=== PATIENT | male | born 1935 | race Caucasian/White ===

== ENCOUNTER 2017-08-24 19:48 | Inpatient (IN) | payer MEDICARE, OTHER ==
[2017-08-24] MEDS ORDERED: NS 0.9% 1000 ML*IV.FLUID IV ONE (20:08)
[2017-08-24] MEDS ORDERED: Ketorolac INJ* 30 MG/ML 1 ML VIAL IV ONE (20:08)
[2017-08-24 21:02] LABS: INR 1.45 (0.77-1.02)
[2017-08-24 21:07] LABS: EGFR Non-African American 53.5 (>60)
[2017-08-24] MEDS ORDERED: Piperacillin/Tazobac ADVAN(*) 3.375 GM in NS 0.9% 100 ML* 100 ML IVPB ONE (21:07)
[2017-08-24] MEDS ORDERED: Levofloxacin 750 MG IVPREMIX(* 750 MG/150 ML BAG IVPB ONE (21:07)
--- NOTE | 2017-08-24 21:28 | RAD ---
Indication: Sepsis, shortness of breath. Single frontal view of the chest performed at 2100 hours was reviewed. Comparison is made with previous exam dated September 09, 2014. Cardiomegaly is noted. Pacemaker leads are in place. Patient is status post tracer thoracotomy. Interstitial edema consistent with vascular congestion is noted. IMPRESSION: CARDIOMEGALY WITH INTERSTITIAL EDEMA CONSISTENT WITH VASCULAR CONGESTION.
[2017-08-24 21:50] LABS: ABS Basophils 0 10^3/ul (0-0.2); ABS Eosinophils 0 10^3/ul (0-0.6); ABS Lymphocytes 0.2 10^3/ul (1.0-4.8); ABS Monocytes 0.4 10^3/ul (0-0.8); ABS Neutrophils 4.8 10^3/ul (1.5-7.7); ABS Nucleated RBC 0 10^3/ul; Eosinophil % 0.4 % (0-6); Hematocrit 38 % (42-52); Hemoglobin 13.1 g/dl (14.0-18.0); Lymphocyte % 4.2 % (25-47); Mean Corpuscular HGB Conc 34 g/dl (31-36); Mean Corpuscular Hemoglobin 34 pg (27-31); Mean Corpuscular Volume 100 fL (80-94); Mean Platelet Volume 10 um3 (7.4-10.4); Nucleated Red Blood Cells % 0; Platelet Count 74 10^3/ul (150-450); Red Blood Count 3.84 10^6/ul (4.0-5.4); Red Cell Distribution Width 15 % (10.5-15); White Blood Count 5.5 10^3/ul (3.5-10.8)
[2017-08-24 21:56] LABS: Urine Appearance Clear; Urine Blood Negative (Negative); Urine Color Yellow; Urine Ketones Negative (Negative); Urine Protein Negative (Negative); Urine Specific Gravity 1.013 (1.010-1.030); Urine Urobilinogen Negative (Negative)
[2017-08-24] MEDS ORDERED: Vancomycin(*) 1,000 MG in NS 0.9% 250 ML* 250 ML IVPB ONE (22:00)
[2017-08-24] MEDS ORDERED: Vancomycin(*) 1,000 MG VIAL IVPB SCH (22:00)
[2017-08-24] MEDS ORDERED: Acetaminophen TAB* 325 MG PO PRN (22:23)
[2017-08-24] MEDS ORDERED: Ondansetron INJ* 2 MG/ML VIAL IV PRN (22:23)
[2017-08-24] MEDS ORDERED: Al Hydrox/Mg Hydrox/Simet LIQ* 30 ML UDC PO PRN (22:23)
[2017-08-24] MEDS ORDERED: Docusate CAP* 100 MG PO PRN (22:42)
[2017-08-24] MEDS ORDERED: Senna TAB PO PRN (22:42)
[2017-08-24] MEDS ORDERED: Zosyn per Pharmacy* NOTE FOLLOW UP SCH (23:00)
--- NOTE | 2017-08-25 00:04 | HP ---
CC: Duran Rosenberg MD * HISTORY AND PHYSICAL: DATE OF ADMISSION: 08/24/17 TIME OF EVALUATION: 0 PRIMARY CARE PHYSICIAN: Duran Rosenberg MD CHIEF COMPLAINT: Fever and shortness of breath. HISTORY OF PRESENT ILLNESS: This is an 82-year-old male with a past medical history of congestive heart failure, atrial fibrillation and advanced dementia who presents to the emergency room from [facility] with rigors, fever and inability to ambulate. On my encounter, the patient states he does not like doctors, he does not have the ability to tell me his name, and the history is thus minimal. I did speak with his who states normally he is ambulatory and this evening he had an acute onset of rigors, feeling unwell and unable to ambulate. He also appeared to be short of breath with pursed lip breathing. He was noted to have a 10-pound weight gain from 08/17/17, he was 140 pounds to today he is 150 pounds. When discussed his baseline dementia, she states that he has advanced dementia. She is not sure if he recognizes any family members. He is unable to carry on meaningful conversation. He is still ambulatory at baseline , but he is now on a pureed diet. He has refused all other foods. There has been some concern about his aspiration risk. On my encounter, unable to obtain review of systems due to the patient's advanced dementia. PAST MEDICAL HISTORY: 1. Advanced dementia. 2. History of congestive heart failure, with preserved EF. Echo done back in 2012 shows EF of 65% to 70%. Moderate TR. Mild to moderate pulmonary hypertension. 3. History of tachybrady, status post pacemaker placement. 4. Atrial fibrillation. 5. Hypertension. 6. Hyperlipidemia. MEDICATIONS: 1. Namenda 10 mg p.o. b.i.d. 2. Citrucel 500 mg p.o. daily. 3. B12 of 1000 mcg p.o. daily. 4. Aricept 5 mg p.o. daily. 5. Lisinopril 2.5 mg daily. 6. Digoxin 1.25 mcg daily. 7. Sertraline 25 mg daily. 8. Torsemide 10 mg 3 times per week. 9. Tamiflu 30 mg daily, it is unclear the duration of when this was started. 10. Coumadin 5 mg p.o. daily. 11. Lipitor 10 mg p.o. daily. 12. Amoxicillin 5000 mg 1 hour prior to dental procedure. 13. Tylenol 650 mg every 4 hours as needed. 14. Milk of magnesia as needed. 15. Guaifenesin as needed. ALLERGIES: SEAFOOD. FAMILY HISTORY: Unable to obtain. SOCIAL HISTORY: As mentioned, the patient lives at assisted living. He ambulates with a walker. He has baseline advanced dementia, does not have meaningful interactions. Pureed diet. His , Rosa, is his healthcare proxy, phone number [phone]. Did confirm with her that he remains a DNR/DNI. No changes to his MOLST form. REVIEW OF SYSTEMS: Unable to obtain due to the patient's advanced mental status. PHYSICAL EXAMINATION GENERAL: In no acute distress. Appears restless. VITAL SIGNS: T-Max 102.9, pulse rate 80, respiratory rate 21, oxygen saturation 94% on room air, and blood pressure 130/60. HEENT: Head normocephalic. Pupils opacified. Minimally reactive. Conjunctivae anicteric. Oropharynx: Posterior oropharynx is erythematous. NECK: Supple. No nuchal rigidity. RESPIRATORY: Coarse rhonchorous breath sounds bilaterally. CARDIAC: Harsh systolic murmur most prominent at the right sternal base. Irregularly irregular rate and rhythm. ABDOMEN: Soft, nontender, and nondistended. EXTREMITIES: No clubbing, cyanosis, or edema. +1 DPs. NEUROLOGIC: The patient is alert and oriented x0. He is spontaneously moving all extremities. Unable to follow any commands. LABORATORY DATA: White count 5.5, hemoglobin 13.1, hematocrit 38, platelets 74 ,000. INR is 1.45. Sodium 132, potassium 4.8, chloride 99, bicarb 23, BUN 29, creatinine 1.28. Troponin 0.04. BNP is 750. Urinalysis unremarkable. Flu is negative. RADIOGRAPHIC DATA: Chest x-ray shows cardiomegaly with interstitial edema consistent with vascular congestion. EKG is paced with atrial fibrillation. ASSESSMENT/PLAN: This is an 82-year-old male with a past medical history of advanced dementia who presents from Assisted Living at [facility] with fever and rigors. 1. Fever. Assessment: The patient with systemic inflammatory response syndrome criteria. It appears most likely related to a viral illness or aspiration pneumonitis. His chest x-ray is abnormal, but there is concern for a volume overload as well. Due to the acute onset and nature of his illness, I would be more concerned with aspiration pneumonitis. In the emergency room, he received 2 L of fluid, Zosyn, Levaquin, and vancomycin. We will continue him on Zosyn for now. We will follow up on his blood cultures, repeat his labs. Obtain swallow study. Continue his pureed diet for now. 2. Acute decompensated heart failure. Assessment: The patient with a history of aortic valve replacement and heart failure and with a significant amount of weight gain recently. He did receive 2 L in the emergency room. P shola: We will increase his torsemide to 20 mg p.o. daily and monitor for signs of worsening fluid overload. We will get an echocardiogram and check I's and O' s and daily weights here. We will check a dig level and determine if appropriate to resume. 3. Renal insufficiency. He had a bump in his creatinine back in early August as well. Plan: We will repeat his labs in the morning, could be from his acute decompensated heart failure. We will hold his lisinopril for now. 4. Atrial fibrillation, on anticoagulation. The patient is subtherapeutic on Coumadin. We will continue his Coumadin at 5; however, with somebody with advanced dementia who is still ambulating, he is a high fall risk and I would discuss with his life tester outboard motors the risks versus benefits of being on anticoagulation with his other comorbidities. 5. Dementia. We will resume his Namenda and Aricept. 6. Hyperlipidemia. We will resume his Lipitor. 7. FEN as mentioned pureed diet, swallow eval to rule out any aspiration. 8. DVT prophylaxis. The patient scores moderate risk. He is on Coumadin. 9. Code status. The patient is a DNR/DNI, confirmed by his . TIME SPENT: Greater than 60 minutes spent doing the history and physical, more than half the time spent in direct patient contact. [id number]/[facility] #: [id number] BIBIANA
[2017-08-25] MEDS ORDERED: Piperacillin/Tazobactam 13.5 GM IV 24 hour continuous infusion IVPB SCH ×2 (01:00)
--- NOTE | 2017-08-25 05:31 | ED ---
Keo Wetzel Julia, scribed for Edi Higuera MD on 08/24/17 at 2009 . HPI Febrile Illness - HPI Summary HPI Summary: This patient is a 82 year old M BIBA to [facility] from assisted living facility accompanied by his with a chief complaint of fever, weakness, and confusion. Patient is coughing and hiccupping. EMS reports fever of 102.9 upon arrival. states he was given Tamiful ten days ago. Pt has history of CHF, pacemaker, and valve replacement. Patient has dementia. - History of Current Complaint Chief Complaint: EDFever Time Seen by Provider: 08/24/17 19:57 Hx Obtained From: Family/Fur Blower, EMS Hx From Patient Unobtainable Due To: Dementia Timing: Constant Temperature: 39.4 C Pain Intensity: 0 Aggravating Factors: Unknown Associated Signs and Symptoms: Other: - weakness confusion coughing and hiccupping - Allergy/Home Medications Allergies/Adverse Reactions: Allergies Allergy/AdvReac Type Severity Reaction Status Date / Time scallops Allergy Mild Vomiting Uncoded 07/08/16 10:42 seafood Allergy Unknown Unknown Uncoded 07/08/16 10:42 Reaction Details PMH/Surg Hx/FS Hx/Imm Hx Cardiovascular History: Reports: Hx Congestive Heart Failure, Hx Hypercholesterolemia, Hx Hypertension, Hx Pacemaker/ICD, Hx Valvular Heart Disease, Other Cardiovascular Problems/Disorders - pacer Musculoskeletal History: Reports: Other Musculoskeletal History - fx L 7th rib Sensory History: Reports: Hx Contacts or Glasses Opthamlomology History: Reports: Hx Contacts or Glasses Neurological History: Reports: Hx Dementia, Other Neuro Impairments/Disorders - mild cognitive impairment 09/14 - Surgical History Surgery Procedure, Year, and Place: OPEN HEARTPACE MAKERPROSTHETIC VALVE Infectious Disease History: No Infectious Disease History: Denies: Traveled Outside the [place] in Last 30 Days - Family History Known Family History: Positive: Unknown - Patient is unable to report due to dementia - Social History Lives: Assisted Living Alcohol Use: Occasionally Substance Use Type: Reports: None Smoking Status (MU): Never Smoked Tobacco Have You Smoked in the Last Year: No Review of Systems Positive: Fever, Other - hiccups Positive: Cough Positive: Weakness All Other Systems Reviewed And Are Negative: Yes - Comments Additional Review of Systems Comments: ROS is limited as Pt is unable to report symptoms secondary to dementia Physical Exam - Summary Physical Exam Summary: Appearance: mild to moderate distress Skin: warm, dry, flushed Head/face: normal Eyes: EOMI, JACKIE ENT: dry mucous membranes, dry cracked lips Neck: supple, non-tender Respiratory: CTA, breath sounds present, has tachypnea Cardiovascular: RRR, pulses symmetrical, pacemaker present at L chest, sternotomy scar, sof systolic murmur Abdomen: non-tender, soft Bowel: present Musculoskeletal: normal, strength/ROM intact, 2+ pitting Edema Neuro: normal, sensory motor intact, A&Ox3 Genitalia: catheter not present Triage Information Reviewed: Yes Vital Signs On Initial Exam: Initial Vitals Temp Pulse Resp BP Pulse Ox 102.9 F 83 20 128/44 94 08/24/17 19:52 08/24/17 19:52 08/24/17 19:52 08/24/17 19:52 08/24/17 19:52 Vital Signs Reviewed: Yes Diagnostics - Vital Signs Vital Signs Temp Pulse Resp BP Pulse Ox 08/24/17 19:52 102.9 F 83 20 128/44 94 - Laboratory Lab Results: Lab Results 08/24/17 08/24/17 08/24/17 Range/Units 20:22 20:25 20:25 WBC (3.5-10.8) 10^3/ul RBC (4.0-5.4) 10^6/ul Hgb (14.0-18.0) g/dl Hct (42-52) % MCV (80-94) fL MCH (27-31) pg MCHC (31-36) g/dl RDW (10.5-15) % Plt Count (150-450) 10^3/ul MPV (7.4-10.4) um3 Neut % (Auto) (38-83) % Lymph % (Auto) (25-47) % Simpson % (Auto) (1-9) % Eos % (Auto) (0-6) % Baso % (Auto) (0-2) % Absolute Neuts (auto) (1.5-7.7) 10^3/ul Absolute Lymphs (auto) (1.0-4.8) 10^3/ul Absolute Monos (auto) (0-0.8) 10^3/ul Absolute Eos (auto) (0-0.6) 10^3/ul Absolute Basos (auto) (0-0.2) 10^3/ul Absolute Nucleated RBC 10^3/ul Nucleated RBC % INR (Anticoag Therapy) 1.45 H (0.77-1.02) APTT 36.1 (26.0-36.3) seconds Sodium (133-145) mmol/L Potassium (3.5-5.0) mmol/L Chloride (101-111) mmol/L Carbon Dioxide (22-32) mmol/L Anion Gap (2-11) mmol/L BUN (6-24) mg/dL Creatinine (0.67-1.17) mg/dL Est GFR ( Amer) (>60) Est GFR (Non-Af Amer) (>60) BUN/Creatinine Ratio (8-20) Glucose (70-100) mg/dL Lactic Acid (0.5-2.0) mmol/L Calcium (8.6-10.3) mg/dL Total Bilirubin (0.2-1.0) mg/dL AST (13-39) U/L ALT (7-52) U/L Alkaline Phosphatase (34-104) U/L Troponin I (<0.04) ng/mL B-Natriuretic Peptide 750 H ( - 100) pg/mL Total Protein (6.4-8.9) g/dL Albumin (3.2-5.2) g/dL Globulin (2-4) g/dL Albumin/Globulin Ratio (1-3) Urine Color Urine Appearance Urine pH (5-9) Ur Specific Kersey (1.010-1.030) Urine Protein (Negative) Urine Ketones (Negative) Urine Blood (Negative) Urine Nitrate (Negative) Urine Bilirubin (Negative) Urine Urobilinogen (Negative) Ur Leukocyte Esterase (Negative) Urine Glucose (Negative) Urine Ascorbic Acid (Negative) Digoxin (0.8-2.0) ng/ml Influenza A (Rapid) Negative (Negative) Influenza B (Rapid) Negative (Negative) 08/24/17 08/24/17 08/24/17 Range/Units 20:25 20:25 20:25 WBC 5.5 (3.5-10.8) 10^3/ul RBC 3.84 L (4.0-5.4) 10^6/ul Hgb 13.1 L (14.0-18.0) g/dl Hct 38 L (42-52) % MCV 100 H (80-94) fL MCH 34 H (27-31) pg MCHC 34 (31-36) g/dl RDW 15 (10.5-15) % Plt Count 74 L (150-450) 10^3/ul MPV 10 (7.4-10.4) um3 Neut % (Auto) 87.9 H (38-83) % Lymph % (Auto) 4.2 L (25-47) % Simpson % (Auto) 7.1 (1-9) % Eos % (Auto) 0.4 (0-6) % Baso % (Auto) 0.4 (0-2) % Absolute Neuts (auto) 4.8 (1.5-7.7) 10^3/ul Absolute Lymphs (auto) 0.2 L (1.0-4.8) 10^3/ul Absolute Monos (auto) 0.4 (0-0.8) 10^3/ul Absolute Eos (auto) 0 (0-0.6) 10^3/ul Absolute Basos (auto) 0 (0-0.2) 10^3/ul Absolute Nucleated RBC 0 10^3/ul Nucleated RBC % 0 INR (Anticoag Therapy) (0.77-1.02) APTT (26.0-36.3) seconds Sodium 132 L (133-145) mmol/L Potassium 4.8 (3.5-5.0) mmol/L Chloride 99 L (101-111) mmol/L Carbon Dioxide 23 (22-32) mmol/L Anion Gap 10 (2-11) mmol/L BUN 29 H (6-24) mg/dL Creatinine 1.28 H (0.67-1.17) mg/dL Est GFR ( Amer) 68.9 (>60) Est GFR (Non-Af Amer) 53.5 (>60) BUN/Creatinine Ratio 22.7 H (8-20) Glucose 92 (70-100) mg/dL Lactic Acid 1.8 (0.5-2.0) mmol/L Calcium 9.1 (8.6-10.3) mg/dL Total Bilirubin 2.40 H (0.2-1.0) mg/dL AST 25 (13-39) U/L ALT 22 (7-52) U/L Alkaline Phosphatase 99 (34-104) U/L Troponin I 0.04 H* (<0.04) ng/mL B-Natriuretic Peptide ( - 100) pg/mL Total Protein 6.4 (6.4-8.9) g/dL Albumin 3.7 (3.2-5.2) g/dL Globulin 2.7 (2-4) g/dL Albumin/Globulin Ratio 1.4 (1-3) Urine Color Urine Appearance Urine pH (5-9) Ur Specific Kersey (1.010-1.030) Urine Protein (Negative) Urine Ketones (Negative) Urine Blood (Negative) Urine Nitrate (Negative) Urine Bilirubin (Negative) Urine Urobilinogen (Negative) Ur Leukocyte Esterase (Negative) Urine Glucose (Negative) Urine Ascorbic Acid (Negative) Digoxin 0.9 (0.8-2.0) ng/ml Influenza A (Rapid) (Negative) Influenza B (Rapid) (Negative) 08/24/17 Range/Units 21:44 WBC (3.5-10.8) 10^3/ul RBC (4.0-5.4) 10^6/ul Hgb (14.0-18.0) g/dl Hct (42-52) % MCV (80-94) fL MCH (27-31) pg MCHC (31-36) g/dl RDW (10.5-15) % Plt Count (150-450) 10^3/ul MPV (7.4-10.4) um3 Neut % (Auto) (38-83) % Lymph % (Auto) (25-47) % Simpson % (Auto) (1-9) % Eos % (Auto) (0-6) % Baso % (Auto) (0-2) % Absolute Neuts (auto) (1.5-7.7) 10^3/ul Absolute Lymphs (auto) (1.0-4.8) 10^3/ul Absolute Monos (auto) (0-0.8) 10^3/ul Absolute Eos (auto) (0-0.6) 10^3/ul Absolute Basos (auto) (0-0.2) 10^3/ul Absolute Nucleated RBC 10^3/ul Nucleated RBC % INR (Anticoag Therapy) (0.77-1.02) APTT (26.0-36.3) seconds Sodium (133-145) mmol/L Potassium (3.5-5.0) mmol/L Chloride (101-111) mmol/L Carbon Dioxide (22-32) mmol/L Anion Gap (2-11) mmol/L BUN (6-24) mg/dL Creatinine (0.67-1.17) mg/dL Est GFR ( Amer) (>60) Est GFR (Non-Af Amer) (>60) BUN/Creatinine Ratio (8-20) Glucose (70-100) mg/dL Lactic Acid (0.5-2.0) mmol/L Calcium (8.6-10.3) mg/dL Total Bilirubin (0.2-1.0) mg/dL AST (13-39) U/L ALT (7-52) U/L Alkaline Phosphatase (34-104) U/L Troponin I (<0.04) ng/mL B-Natriuretic Peptide ( - 100) pg/mL Total Protein (6.4-8.9) g/dL Albumin (3.2-5.2) g/dL Globulin (2-4) g/dL Albumin/Globulin Ratio (1-3) Urine Color Yellow Urine Appearance Clear Urine pH 5.0 (5-9) Ur Specific Kersey 1.013 (1.010-1.030) Urine Protein Negative (Negative) Urine Ketones Negative (Negative) Urine Blood Negative (Negative) Urine Nitrate Negative (Negative) Urine Bilirubin Negative (Negative) Urine Urobilinogen Negative (Negative) Ur Leukocyte Esterase Negative (Negative) Urine Glucose Negative (Negative) Urine Ascorbic Acid * H (Negative) Digoxin (0.8-2.0) ng/ml Influenza A (Rapid) (Negative) Influenza B (Rapid) (Negative) Result Diagrams: 08/24/17 20:25 08/24/17 20:25 Lab Statement: Any lab studies that have been ordered have been reviewed, and results considered in the medical decision making process. - EKG 2030 Cardiac Rate: NL - at 78 BPM EKG Rhythm: Atrial Fibrillation ST Segment: Non-Specific EKG Interpretation: ventricular paced, L axis deviation, LBBB Course/Dx - Course Course Of Treatment: pt with high fever, cough and hx of aspiration. Flu test neg. Patchy infiltrates on xray however read as CHF. I believe this to be mixed bag PNU and CHF. Triple abx given half-way exposure. IV fluids stopped at 1L due to hx of CHF and elevated BNP/some peripheral edema. D/W Hospitalist who will admit for further. Lactate not elevated. - Febrile Illness Differential Diagnoses: Abd. Infection, Bacteremia, Fever of Unknown Origin, Pneumonia, Sepsis, Other: - UTI, flu, etc - Diagnoses Provider Diagnoses: Sepsis, Acute aspiration pneumonia, CHF (congestive heart failure), Thrombocytopenia - Critical Care Time Critical Care Time: 30-74 min - exclusive of separately billable procedures Discharge - Discharge Plan Condition: Guarded Disposition: ADMITTED TO [facility] The documentation as recorded by the Keo acuna Julia accurately reflects the service I personally performed and the decisions made by me, Edi Higuera MD.
[2017-08-25 06:05] LABS: ABS Basophils 0 10^3/ul (0-0.2); ABS Eosinophils 0 10^3/ul (0-0.6); ABS Lymphocytes 0.3 10^3/ul (1.0-4.8); ABS Monocytes 0.4 10^3/ul (0-0.8); ABS Neutrophils 3.6 10^3/ul (1.5-7.7); ABS Nucleated RBC 0 10^3/ul; Eosinophil % 0.3 % (0-6); Hematocrit 36 % (42-52); Hemoglobin 12.3 g/dl (14.0-18.0); Lymphocyte % 6.4 % (25-47); Mean Corpuscular HGB Conc 34 g/dl (31-36); Mean Corpuscular Hemoglobin 34 pg (27-31); Mean Corpuscular Volume 100 fL (80-94); Mean Platelet Volume 9 um3 (7.4-10.4); Nucleated Red Blood Cells % 0.1; Platelet Count 58 10^3/ul (150-450); Red Blood Count 3.61 10^6/ul (4.0-5.4); Red Cell Distribution Width 15 % (10.5-15); White Blood Count 4.4 10^3/ul (3.5-10.8)
[2017-08-25 06:13] LABS: EGFR Non-African American 39.1 (>60)
--- NOTE | 2017-08-25 06:48 | PN ---
Progress Note - Progress Note Date of Service: 08/25/17 Note: Per staff midwife/apprenticeship director paperwork shows that if patient does not have capacity that he wants to be comfort care. Recommend follow up with regarding specifics of patient's living will. I did speak with her prior to knowledge of this and she was agreeable to antibiotics and treatment.
[2017-08-25] MEDS ORDERED: Torsemide TAB* 20 MG PO SCH (09:00)
[2017-08-25] MEDS: Memantine TAB* 10 MG PO SCH ×2 (09:01→21:51)
[2017-08-25] MEDS: Sertraline* 25 MG TAB PO SCH (09:01)
[2017-08-25] MEDS: Donepezil TAB* 5 MG PO SCH (09:01)
[2017-08-25] MEDS ORDERED: NS 0.9% 1000 ML* 1,000 ML IV SCH (09:45)
--- NOTE | 2017-08-25 10:09 | ECHO ---
Patient: WILBERT ALFRED [facility] Rec#: [id number] : 1935 Date: 08/25/2017 Age: 82y Height: 177.8 cm / 70.0 in Weight: 68.04 kg / 150.0 lbs Sex: M BSA: 1.85 Room#: 438 Admit Date#: 08/24/2017 Type: Inpatient Referring: Marisol Lagos Reading: Casey Ulloa DO Erecting Crane Operator: Christie Corral RDCS CC: Duran Rosenberg MD Transthoracic Echocardiogram Indication: CHF BP: 125/31 HR: 77 Rhythm: Paced Findings History: CAD, A-fib, s/p pacer, advanced dementia, HTN, HLD, harsh systolic murmur, s/p AVR [address] [place] Trifecta. Technical Comments: The study quality is good. Completed at 0840. Left Ventricle: The left ventricular chamber size is normal. Mild concentric left ventricular hypertrophy is observed. There is a prominent septal knuckle. Global left ventricular wall motion and contractility are within normal limits. The estimated ejection fraction is 55-60%. There is abnormal ventricular septal wall motion consistent with right ventricular pacemaker. The assessment of diastolic function is non-diagnostic. Left Atrium: The left atrium is severely dilated. Right Ventricle: The right ventricle is mildly dilated. The right ventricular global systolic function is mildly reduced. A pacemaker wire is visualized in the right ventricle. Right Atrium: The right atrial cavity size is severely dilated. A pacemaker wire is visualized in the right atrium. Aortic Valve: There is severe aortic regurgitation. There is no evidence of aortic stenosis. A bio-prosthetic pericardial aortic valve is present. #23 [place] Trifecta by history. The aortic valve leaflets appear to open well on short axis imaging. Mitral Valve: Mild mitral annular calcification present. The mitral valve leaflets are mildly thickened. There is mild to moderate mitral regurgitation. , more consistent with moderate There is no evidence of mitral stenosis. Tricuspid Valve: The tricuspid valve leaflets are mildly thickened. There is moderate tricuspid regurgitation. There is evidence of severe pulmonary hypertension. There is no tricuspid stenosis. Pulmonic Valve: The pulmonic valve appears normal. There is a trace pulmonic regurgitation. There is no pulmonic stenosis. Pericardium: There is no significant pericardial effusion. Aorta: There is moderate dilatation of the ascending aorta. There is no dilatation of the aortic arch. The aortic root is normal in size. Pulmonary Artery: The main pulmonary artery is not well visualized. Venous: The inferior vena cava is dilated. There is an approximate 50% respiratory change in the inferior vena cava dimension. Conclusions The left ventricular chamber size is normal. Mild concentric left ventricular hypertrophy is observed. The estimated ejection fraction is 55-60%. The left atrium is severely dilated. The right ventricle is mildly dilated. The right ventricular global systolic function is mildly reduced. A bio-prosthetic aortic valve is present. There is severe aortic regurgitation, appears mostly intravalvular. A ejrad-valvular component cannot be excluded on transthoracic imaging.. There is mild to moderate mitral regurgitation, more consistent with moderate There is moderate tricuspid regurgitation. There is evidence of severe pulmonary hypertension. Compared to prior study from 10/2016, the most important change is that there is now severe bioprosthetic AR instead of moderate. Measurements Name Value Normal Range RVIDd (AP) 2D 3.5 cm (0.9 - 2.6) RVDdMajor (2D) 4.5 cm (2.2 - 4.4) RAd ISD 4CH 6.4 cm (3.4 - 4.9) RA (A4C)W 5.9 cm (2.9 - 4.6) IVSd (2D) 1.2 cm (0.6 - 1) LVPWd (2D) 1.2 cm (0.6 - 1) LVIDd (2D) 5.4 cm (3.6 - 5.4) LVIDs (2D) 3.4 cm - LV FS (2D) 37 % (25 - 45) Aortic Annulus 1.8 cm (1.4 - 2.6) Ao root diameter (2D) 3.2 cm (2.1 - 3.5) Ascending Ao 4.4 cm (2.1 - 3.4) Aortic arch 2.4 cm (1.8 - 3.4) LA dimension (AP) 2D 4.6 cm (2.3 - 3.8) LAd ISD 4CH 6.4 cm (2.9 - 5.3) LA ISD 4CH W 5.6 cm (2.5 - 4.5) Name Value Normal Range LA ESV SP 4CH (A/L) 99 ml - LA ESV SP 2CH (A/L) 130 ml - LA ESV BP (A/L) 127 ml - LA ESV BP (A/L) index 68 ml/m2 - LA ESV SP 4CH (MOD) 82 ml - LA ESV SP 2CH (MOD) 128 ml - Name Value Normal Range MV E-wave Vmax 0.99 m/sec - MV deceleration time 176.7 msec - LV septal e' Vmax 0.07 m/sec - LV lateral e' Vmax 0.07 m/sec - LV E:e' septal ratio 14.14 ratio - LV E:e' lateral ratio 14.14 ratio - Name Value Normal Range AV Vmax 3.1 m/sec - AV VTI 60.09 cm - AV peak gradient 40.93 mmHg - AV mean gradient 22.1 mmHg - LVOT diameter 2 cm - LVOT Vmax 1.54 m/sec - LVOT VTI 31.7 cm - LVOT peak gradient 9.53 mmHg - LVOT mean gradient 6.14 mmHg - CHARLEY (continuity Vmax) 1.6 cm2 - CHARLEY (continuity VTI) 1.6 cm2 - AR PHT 197 msec - AR peak gradient 51.96 mmHg - CANDI Vmax 0.75 m/sec - Name Value Normal Range MR Vmax 5 m/sec - MR VTI 137.5 cm - MR flow (PISA) 41.8 ml/sec - MR ERO 0.08 cm2 - MR PISA radius 0.5 cm - MR alias Vmax 32 cm/sec - Name Value Normal Range TR Vmax 3 m/sec - TR peak gradient 58 mmHg - RAP 8 mmHg - RVSP 66 mmHg - IVC diameter 2.9 cm - Name Value Normal Range PV Vmax 1.4 m/sec - PV peak gradient 7.74 mmHg - ID end-diastolic Vmax 1.02 m/sec -
--- NOTE | 2017-08-25 10:27 | PN ---
Subjective Date of Service: 08/25/17 Interval History: Pt is feeling ok. He denies any pain. He denies any SOB. Objective Active Medications: Acetaminophen (Tylenol Tab*) 650 mg PO Q4H PRN PRN Reason: FEVER/PAIN Al Hydrox/Mg Hydrox/Simethicone (Maalox Plus*) 30 ml PO Q6H PRN PRN Reason: INDIGESTION Atorvastatin Calcium (Lipitor*) 10 mg PO 1700 [facility] Docusate Sodium (Colace Cap*) 100 mg PO BID PRN PRN Reason: CONSTIPATION Donepezil HCl (Aricept Tab*) 5 mg PO DAILY [facility] Last Admin: 08/25/17 09:01 Dose: 5 mg Piperacillin Sod/Tazobactam (Sod 13.5 gm/ Sodium Chloride) 500 mls @ 20.833 mls /hr IVPB Q24H [facility] Last Admin: 08/25/17 02:06 Dose: 20.833 mls/hr Sodium Chloride (Ns 0.9% 1000 Ml*) 1,000 mls @ 75 mls/hr IV PER RATE [facility] Last Admin: 08/25/17 10:19 Dose: 75 mls/hr Memantine (Namenda Tab*) 10 mg PO BID [facility] Last Admin: 08/25/17 09:01 Dose: 10 mg Ondansetron HCl (Zofran Inj*) 4 mg IV Q4H PRN PRN Reason: NAUSEA/VOMITING Pharmacy Consult (Zosyn Per Pharmacy*) 1 note FOLLOW UP .ZOSYN PER PHARMACY [facility] Pharmacy Profile Note (Coumadin Per Pharmacy*) 1 note FOLLOW UP .PER PHARMACY [facility] PRN Reason: Protocol Senna (Senokot Tab*) 2 tab PO BEDTIME PRN PRN Reason: CONSTIPATION Sertraline HCl (Zoloft*) 25 mg PO DAILY [facility] Last Admin: 08/25/17 09:01 Dose: 25 mg Warfarin Sodium (Coumadin Tab(*)) 5 mg PO DAILY@1700 ONE PRN Reason: Protocol Stop: 08/25/17 17:01 Vital Signs - 8 hr 08/25/17 08/25/17 08/25/17 03:48 08:36 08:44 Temperature 98.8 F 100.1 F Pulse Rate 76 75 Respiratory 20 30 Rate Blood Pressure 125/31 125/45 (mmHg) O2 Sat by Pulse 92 93 Oximetry Oxygen Devices in Use Now: None Appearance: Elderly male sitting up in bed, reading the paper, mildly tachypnic , NAD Eyes: No Scleral Icterus Ears/Nose/Mouth/Throat: Mucous Membranes Moist Respiratory: - - coarse ronchi throughout the lungs Cardiovascular: NL Sounds; No Murmurs; No JVD, No Edema, - - irregularly irregular, controlled rate Abdominal: NL Sounds; No Tenderness; No Distention Extremities: No Clubbing, Cyanosis Skin: No Rash or Ulcers, No Nodules or Sclerosis Neurological: - - pleasantly confused Result Diagrams: 08/25/17 05:35 08/25/17 05:35 Additional Lab and Data: Lab Results 08/24/17 08/24/17 08/24/17 Range/Units 20:22 20:25 20:25 WBC (3.5-10.8) 10^3/ul RBC (4.0-5.4) 10^6/ul Hgb (14.0-18.0) g/dl Hct (42-52) % MCV (80-94) fL MCH (27-31) pg MCHC (31-36) g/dl RDW (10.5-15) % Plt Count (150-450) 10^3/ul MPV (7.4-10.4) um3 Neut % (Auto) (38-83) % Lymph % (Auto) (25-47) % Oto[place] % (Auto) (1-9) % Eos % (Auto) (0-6) % Baso % (Auto) (0-2) % Absolute Neuts (auto) (1.5-7.7) 10^3/ul Absolute Lymphs (auto) (1.0-4.8) 10^3/ul Absolute Monos (auto) (0-0.8) 10^3/ul Absolute Eos (auto) (0-0.6) 10^3/ul Absolute Basos (auto) (0-0.2) 10^3/ul Absolute Nucleated RBC 10^3/ul Nucleated RBC % INR (Anticoag Therapy) 1.45 H (0.77-1.02) APTT 36.1 (26.0-36.3) seconds Sodium (133-145) mmol/L Potassium (3.5-5.0) mmol/L Chloride (101-111) mmol/L Carbon Dioxide (22-32) mmol/L Anion Gap (2-11) mmol/L BUN (6-24) mg/dL Creatinine (0.67-1.17) mg/dL Est GFR ( Amer) (>60) Est GFR (Non-Af Amer) (>60) BUN/Creatinine Ratio (8-20) Glucose (70-100) mg/dL Lactic Acid (0.5-2.0) mmol/L Calcium (8.6-10.3) mg/dL Total Bilirubin (0.2-1.0) mg/dL AST (13-39) U/L ALT (7-52) U/L Alkaline Phosphatase (34-104) U/L Troponin I (<0.04) ng/mL B-Natriuretic Peptide 750 H ( - 100) pg/mL Total Protein (6.4-8.9) g/dL Albumin (3.2-5.2) g/dL Globulin (2-4) g/dL Albumin/Globulin Ratio (1-3) Urine Color Urine Appearance Urine pH (5-9) Ur Specific Berclair (1.010-1.030) Urine Protein (Negative) Urine Ketones (Negative) Urine Blood (Negative) Urine Nitrate (Negative) Urine Bilirubin (Negative) Urine Urobilinogen (Negative) Ur Leukocyte Esterase (Negative) Urine Glucose (Negative) Urine Ascorbic Acid (Negative) Digoxin (0.8-2.0) ng/ml Influenza A (Rapid) Negative (Negative) Influenza B (Rapid) Negative (Negative) 08/24/17 08/24/17 08/24/17 Range/Units 20:25 20:25 20:25 WBC 5.5 (3.5-10.8) 10^3/ul RBC 3.84 L (4.0-5.4) 10^6/ul Hgb 13.1 L (14.0-18.0) g/dl Hct 38 L (42-52) % MCV 100 H (80-94) fL MCH 34 H (27-31) pg MCHC 34 (31-36) g/dl RDW 15 (10.5-15) % Plt Count 74 L (150-450) 10^3/ul MPV 10 (7.4-10.4) um3 Neut % (Auto) 87.9 H (38-83) % Lymph % (Auto) 4.2 L (25-47) % Otoe % (Auto) 7.1 (1-9) % Eos % (Auto) 0.4 (0-6) % Baso % (Auto) 0.4 (0-2) % Absolute Neuts (auto) 4.8 (1.5-7.7) 10^3/ul Absolute Lymphs (auto) 0.2 L (1.0-4.8) 10^3/ul Absolute Monos (auto) 0.4 (0-0.8) 10^3/ul Absolute Eos (auto) 0 (0-0.6) 10^3/ul Absolute Basos (auto) 0 (0-0.2) 10^3/ul Absolute Nucleated RBC 0 10^3/ul Nucleated RBC % 0 INR (Anticoag Therapy) (0.77-1.02) APTT (26.0-36.3) seconds Sodium 132 L (133-145) mmol/L Potassium 4.8 (3.5-5.0) mmol/L Chloride 99 L (101-111) mmol/L Carbon Dioxide 23 (22-32) mmol/L Anion Gap 10 (2-11) mmol/L BUN 29 H (6-24) mg/dL Creatinine 1.28 H (0.67-1.17) mg/dL Est GFR ( Amer) 68.9 (>60) Est GFR (Non-Af Amer) 53.5 (>60) BUN/Creatinine Ratio 22.7 H (8-20) Glucose 92 (70-100) mg/dL Lactic Acid 1.8 (0.5-2.0) mmol/L Calcium 9.1 (8.6-10.3) mg/dL Total Bilirubin 2.40 H (0.2-1.0) mg/dL AST 25 (13-39) U/L ALT 22 (7-52) U/L Alkaline Phosphatase 99 (34-104) U/L Troponin I 0.04 H* (<0.04) ng/mL B-Natriuretic Peptide ( - 100) pg/mL Total Protein 6.4 (6.4-8.9) g/dL Albumin 3.7 (3.2-5.2) g/dL Globulin 2.7 (2-4) g/dL Albumin/Globulin Ratio 1.4 (1-3) Urine Color Urine Appearance Urine pH (5-9) Ur Specific Berclair (1.010-1.030) Urine Protein (Negative) Urine Ketones (Negative) Urine Blood (Negative) Urine Nitrate (Negative) Urine Bilirubin (Negative) Urine Urobilinogen (Negative) Ur Leukocyte Esterase (Negative) Urine Glucose (Negative) Urine Ascorbic Acid (Negative) Digoxin 0.9 (0.8-2.0) ng/ml Influenza A (Rapid) (Negative) Influenza B (Rapid) (Negative) 08/24/17 Range/Units 21:44 WBC (3.5-10.8) 10^3/ul RBC (4.0-5.4) 10^6/ul Hgb (14.0-18.0) g/dl Hct (42-52) % MCV (80-94) fL MCH (27-31) pg MCHC (31-36) g/dl RDW (10.5-15) % Plt Count (150-450) 10^3/ul MPV (7.4-10.4) um3 Neut % (Auto) (38-83) % Lymph % (Auto) (25-47) % Otoe % (Auto) (1-9) % Eos % (Auto) (0-6) % Baso % (Auto) (0-2) % Absolute Neuts (auto) (1.5-7.7) 10^3/ul Absolute Lymphs (auto) (1.0-4.8) 10^3/ul Absolute Monos (auto) (0-0.8) 10^3/ul Absolute Eos (auto) (0-0.6) 10^3/ul Absolute Basos (auto) (0-0.2) 10^3/ul Absolute Nucleated RBC 10^3/ul Nucleated RBC % INR (Anticoag Therapy) (0.77-1.02) APTT (26.0-36.3) seconds Sodium (133-145) mmol/L Potassium (3.5-5.0) mmol/L Chloride (101-111) mmol/L Carbon Dioxide (22-32) mmol/L Anion Gap (2-11) mmol/L BUN (6-24) mg/dL Creatinine (0.67-1.17) mg/dL Est GFR ( Amer) (>60) Est GFR (Non-Af Amer) (>60) BUN/Creatinine Ratio (8-20) Glucose (70-100) mg/dL Lactic Acid (0.5-2.0) mmol/L Calcium (8.6-10.3) mg/dL Total Bilirubin (0.2-1.0) mg/dL AST (13-39) U/L ALT (7-52) U/L Alkaline Phosphatase (34-104) U/L Troponin I (<0.04) ng/mL B-Natriuretic Peptide ( - 100) pg/mL Total Protein (6.4-8.9) g/dL Albumin (3.2-5.2) g/dL Globulin (2-4) g/dL Albumin/Globulin Ratio (1-3) Urine Color Yellow Urine Appearance Clear Urine pH 5.0 (5-9) Ur Specific Berclair 1.013 (1.010-1.030) Urine Protein Negative (Negative) Urine Ketones Negative (Negative) Urine Blood Negative (Negative) Urine Nitrate Negative (Negative) Urine Bilirubin Negative (Negative) Urine Urobilinogen Negative (Negative) Ur Leukocyte Esterase Negative (Negative) Urine Glucose Negative (Negative) Urine Ascorbic Acid * H (Negative) Digoxin (0.8-2.0) ng/ml Influenza A (Rapid) (Negative) Influenza B (Rapid) (Negative) Assess/Plan/Problems-Billing Mr Mo is an 82 yo M who has a h/o advanced dementia, CHF with pEF, s/p bioprosthetic AV with aortic regurgitation, afib s/p PPM, HTN and HLD who presented to the ER with c/o fever and SOB. - Patient Problems (1) Aspiration pneumonia Current Visit: Yes Status: Acute Code(s): J69.0 - PNEUMONITIS DUE TO INHALATION OF FOOD AND VOMIT SNOMED Code(s): 738180363 Comment: The thought was the patient was septic on admission by sepsis 2 definition as he was febrile and tachypnic with possible aspiration pneumonia. The patient continues to have intermittent fevers. Will continue zosyn for now. Monitor respiratory status which is essentially stable at this time. (2) Diastolic CHF Current Visit: Yes Status: Acute Code(s): I50.30 - UNSPECIFIED DIASTOLIC ( CONGESTIVE) HEART FAILURE SNOMED Code(s): 565570415 Comment: ? acute diastolic chf on admission but despite receiving IV fluids the patient's creatinine worsened. Will stop torsemide for now. The patient was found to have severe aortic regurgitation. Will ask for cardiology consultation. (3) Stage III chronic kidney disease Current Visit: Yes Status: Acute Code(s): N18.3 - CHRONIC KIDNEY DISEASE, STAGE 3 (MODERATE) SNOMED Code(s): 380176569 Comment: The patient's creatinine at baseline has not been completely stable however I suspect he has baseline stage III CKD. Creatinine today is worse despite IVF yesterday. Will follow up labs tomorrow AM and administer gentle IVF hydration. If the patient's respiratory status worsens I will need to discuss with the patient's about goals of care which the patient previously indicated he would want comfort measures though this changed this admission based on his wifes wishes. (4) Afib Current Visit: Yes Status: Chronic Code(s): I48.91 - UNSPECIFIED ATRIAL FIBRILLATION SNOMED Code(s): 87639687 Comment: The patient is in controlled afib. Will continue coumadin to get the INR therapeutic. (5) Dementia Current Visit: Yes Status: Acute Code(s): F03.90 - UNSPECIFIED DEMENTIA WITHOUT BEHAVIORAL DISTURBANCE SNOMED Code(s): 21464944 Comment: Continue aricept and namenda for now but will discuss with about stopping. (6) DVT prophylaxis Current Visit: Yes Status: Acute Onset Date: 09/12/14 Code(s): SYZ4789 - SNOMED Code(s): 574499089 Comment: INR subtherapeutic-start SQ heparin until therapeutic (7) DNR (do not resuscitate) Current Visit: Yes Status: Acute
[2017-08-25] MEDS ORDERED: Sodium Polystyrene ORAL.SOL* 15 GM/60 ML BTL PO ONE (10:41)
--- NOTE | 2017-08-25 12:18 | CONSULT ---
Subjective Date of Service: 08/25/17 Interval History: Admission Date: 08/24/17 Provider: Hospitalist service PMD: Duran Rosenberg MD [place] Husk Baler: Dr. Vera CHIEF COMPLAINT: fevers, rigors, change in functional status Reason for consult: Bioprosthetic valve aortic regurgitation. HISTORY OF PRESENT ILLNESS: Dc Mo is an 82-year-old man admitted [place] [facility] admitted with a febrile illness and possibly dyspnea. He is unable to provide a history and history taken from his , daughter jun who are present as well as admission H+P by Dr. Lagos. Patients tells me he has advanced dementia. He does recognize his today but otherwise is not oriented. He has had to go to a pureed diet last few weeks but is still ambulatory. He was admitted with fevers, rigors, change in functional status and possibly dyspnea. He has received diuretics, IV fluids and antibiotics. He was found to be febrile with a normal influenza test, wbc and procalcitonin level. The infection may be viral vs. aspiration. He had an echocardiogram that showed progression of bioprosthetic AR since the 10/2016 echo. I compared the images directly. The AR appeared moderate then and severe now by multiple parameters. It appears intravalvular. The presence of paravalvular leak cannot be excluded. There is no clear clinical evidence of bacterial endocarditis. He has a harsh diastolic murmur and a wide pulse pressure with roughly on average ~ 120/40 mmhg. This is clinically consistent with severe AR. The BNP is stable but CXR shows evidence of volume overload and creatinine is higher than baseline. He has had weight gain of 10 pounds reported since 08/17/2017. It does not appear that the AI is the primary decompensating factor this admission but I think it is playing a very significant role in his overall health as he has poor cardiovascular reserve from this. The LVEF remains normal. He denies any dyspnea or pain with "no" answer but appears mildly tachypneic on exam. He is obviously not a great candidate for a procedure such as valve in valve TAVR at this time. His and daughter in law would like him to be comfortable. I am unsure the prognosis from dementia but from their account it seems to be progressing. They would like him not to have IV's running if possible and would like him to go back to [facility] [place] as soon as possible. They are possibly interested in hospice and he could continue his regular treatment and this could be discontinued if not felt to be needed. PAST MEDICAL HISTORY: 1. dementia. 2. congestive heart failure 3. History of tachybrady, status post pacemaker placement. 4. Atrial fibrillation. 5. Hypertension. 6. Hyperlipidemia. 7. AVR with AR Allergies: Scallops 12/20/11 Penicillin 11/26/16 allergy list reviewed on 07/12/2017 Pshx: RF Ablation - (12/08/2005) for atrial flutter, Dr. Segal, [facility]. Pacemaker Implantation - (06/2010) [facility], [employer]. Aortic vavle - (02/23/2013) [facility] [address] [facility] Trivecta and RF maze and PV isolation FH: Non-contributory SH: SOCIAL HISTORY: patient lives at assisted living. He ambulates with a walker. He has baseline advanced dementia, does not have meaningful interactions. Pureed diet. His , Rosa, is his healthcare proxy, phone number [phone]. Did confirm with her that he remains a DNR/DNI. No changes to his MOLST form. Personal Habits: Smoking: Patient has never smoked.Alcohol: Denies alcohol use.Drug Use: Denies Drug Use. Medications Active Medications: Acetaminophen (Tylenol Tab*) 650 mg PO Q4H PRN PRN Reason: FEVER/PAIN Al Hydrox/Mg Hydrox/Simethicone (Maalox Plus*) 30 ml PO Q6H PRN PRN Reason: INDIGESTION Atorvastatin Calcium (Lipitor*) 10 mg PO 1700 [facility] Docusate Sodium (Colace Cap*) 100 mg PO BID PRN PRN Reason: CONSTIPATION Donepezil HCl (Aricept Tab*) 5 mg PO DAILY [facility] Last Admin: 08/25/17 09:01 Dose: 5 mg Heparin Sodium (Porcine) (Heparin Vial(*)) 5,000 units SUBCUT Q8HR [facility] Piperacillin Sod/Tazobactam (Sod 13.5 gm/ Sodium Chloride) 500 mls @ 20.833 mls /hr IVPB Q24H [facility] Last Admin: 08/25/17 02:06 Dose: 20.833 mls/hr Sodium Chloride (Ns 0.9% 1000 Ml*) 1,000 mls @ 75 mls/hr IV PER RATE [facility] Last Admin: 08/25/17 10:19 Dose: 75 mls/hr Memantine (Namenda Tab*) 10 mg PO BID [facility] Last Admin: 08/25/17 09:01 Dose: 10 mg Ondansetron HCl (Zofran Inj*) 4 mg IV Q4H PRN PRN Reason: NAUSEA/VOMITING Pharmacy Consult (Zosyn Per Pharmacy*) 1 note FOLLOW UP .ZOSYN PER PHARMACY [facility] Pharmacy Profile Note (Coumadin Per Pharmacy*) 1 note FOLLOW UP .PER PHARMACY [facility] PRN Reason: Protocol Senna (Senokot Tab*) 2 tab PO BEDTIME PRN PRN Reason: CONSTIPATION Sertraline HCl (Zoloft*) 25 mg PO DAILY [facility] Last Admin: 08/25/17 09:01 Dose: 25 mg Warfarin Sodium (Coumadin Tab(*)) 5 mg PO DAILY@1700 ONE PRN Reason: Protocol Stop: 08/25/17 17:01 Home Medications: Lipitor* 5 mg PO DAILY 02/12/13 [History Confirmed 08/24/17] Vitamin B Complex 1 tab PO DAILY 02/12/13 [History Confirmed 08/24/17] Warfarin TAB(*) 5 mg PO SEE INSTRUCTIONS 07/15/14 [History Confirmed 08/24/17] Acetaminophen TAB* 650 mg PO Q4HR PRN 08/24/17 [History Confirmed 08/24/17] Amoxicillin 500 MG CAP* 2,000 mg PO SEE INSTRUCTIONS 08/24/17 [History Confirmed 08/24/17] Aricept 5 MG TAB* 5 mg PO DAILY 08/24/17 [History Confirmed 08/24/17] Citrucel 500 mg PO DAILY 08/24/17 [History Confirmed 08/24/17] Coumadin TAB(*) 2.5 mg PO SEE INSTRUCTIONS 08/24/17 [History Confirmed 08/24/17] Digoxin TAB* 125 mcg PO DAILY 08/24/17 [History Confirmed 08/24/17] Lisinopril 2.5 MG- 2.5 mg PO DAILY 08/24/17 [History Confirmed 08/24/17] Milk of Magnesia LIQ* 30 ml PO DAILY PRN 08/24/17 [History Confirmed 08/24/17] Namenda TAB* 10 mg PO BID 08/24/17 [History Confirmed 08/24/17] Sertraline* 25 mg PO DAILY 08/24/17 [History Confirmed 08/24/17] Torsemide TAB* 10 mg PO SEE INSTRUCTIONS 08/24/17 [History Confirmed 08/24/17] Zoloft* 12.5 mg PO DAILY 08/24/17 [History Confirmed 08/24/17] Review of Systems - Measurements Intake and Output: Intake and Output Last 24 Hours 08/23/17 08/24/17 08/25/17 08/26/17 06:59 06:59 06:59 06:59 Intake Total 88 180 Output Total 300 Balance -212 180 Weight 141 lb 14.4 oz Intake: IV Fluids 88 ABX - PIPERACILLIN 88 Oral 0 180 Output: Gamble 300 Other: # Bowel Movements 0 - Review of Systems Review of Systems Statement: Unable to obtain full ROS due to mental status. Patient answered "No" when I asked if he had any pain or difficulty breathing Objective Vital Signs: Temp Pulse Resp BP Pulse Ox 98.2 F 75 18 124/34 92 08/25/17 11:19 08/25/17 11:19 08/25/17 11:19 08/25/17 11:19 08/25/17 11:26 Oxygen Devices in Use Now: None Appearance: frail, elderly, able to answer questions Ears/Nose/Mouth/Throat: Clear Oropharnyx, Mucous Membranes Moist Neck: Trachea Midline, - - uncertain jvp Respiratory: - - coarse crackles scattered, mild increased work of breathing Cardiovascular: - - irregular irregular, harsh 3/6 diastolic murmur heard best lateral to LUSB Abdominal: NL Sounds; No Tenderness; No Distention Extremities: No Edema Skin: No Nodules or Sclerosis Neurological: - - awake and alert, no oriented to time or place, recognizes but not daughter in law Laboratory Results: 08/25/17 05:35 08/25/17 05:35 INR (Anticoag Therapy) 1.45 (0.77-1.02) H 08/24/17 20:25 APTT 36.1 seconds (26.0-36.3) 08/24/17 20:25 Total Bilirubin 2.40 mg/dL (0.2-1.0) H 08/24/17 20:25 AST 25 U/L (13-39) 08/24/17 20:25 ALT 22 U/L (7-52) 08/24/17 20:25 Alkaline Phosphatase 99 U/L (34-104) 08/24/17 20:25 B-Natriuretic Peptide 750 pg/mL (-100) H 08/24/17 20:25 Total Protein 6.4 g/dL (6.4-8.9) 08/24/17 20:25 Albumin 3.7 g/dL (3.2-5.2) 08/24/17 20:25 Globulin 2.7 g/dL (2-4) 08/24/17 20:25 Albumin/Globulin Ratio 1.4 (1-3) 08/24/17 20:25 08/25/17 08/25/17 00:48 05:35 Troponin I 0.04 H* 0.04 H* 08/24/2017: dig level 0.9 Diagnostic Imaging: Echocardiogram - (11/10/2016) EF of 55-60%, aortic valve with moderate AI RADIOGRAPHIC DATA: Chest x-ray this admisison shows cardiomegaly with interstitial edema consistent with vascular congestion. EKG is paced with atrial fibrillation. EKG Data: EKG 08/24/2017: Afib, LBBB (less likely paced rhythm) Assessment/Plan Mr. Mo is an 82 year old woman with a history as above including but not limited to significant dementia and symptomatic severe bioprosthetic AR admitted with a febrile illness causing cardiac decompensation - Would stop IVF, statin and hold digoxin with labile renal function. Restart diuretic, creatinine may rise considerably to remove enough fluid to make him more comfortable. May be reasonable not to check further labs - I discussed with intensive care anaesthetist, Angie and Dr. Tejeda at patients request. They are going to work on transitioning to oral medications and once felt to be stable enough have transfer to a higher level of care at [place]. Thank you for allowing me to participate in the cardiovascular care of this patient. Please do not hesitate to contact me with questions or concerns.
[2017-08-25] MEDS: Heparin VIAL(*) 5000 UNITS/ML VIAL (FIVE THOUSAND) SUBCUT SCH ×2 (13:39→21:51)
[2017-08-25] MEDS ORDERED: Furosemide IV* 10 MG/ML 10 ML VIAL (100 MG) IV ONE (16:53)
[2017-08-25] MEDS ORDERED: Morphine INJ* 2 MG/ML 1 ML SYRINGE (TWO MG - NEW SYRINGE VERSION) IV ONE (16:53)
[2017-08-25] MEDS ORDERED: Morphine INJ* 2 MG/ML 1 ML CARPUJECT ONE (16:57)
[2017-08-25] MEDS ORDERED: Furosemide IV* 10 MG/ML 10 ML VIAL (100 MG) ONE (16:57)
[2017-08-25] MEDS ORDERED: Atorvastatin* 10 MG TAB PO SCH (17:00)
[2017-08-25] MEDS ORDERED: Warfarin TAB(*) 5 MG PO ONE ×2 (17:00→22:00)
--- NOTE | 2017-08-25 19:54 | PN ---
Progress Note - Progress Note Date of Service: 08/25/17 Note: This afternoon the patient went into respiratory distress and acute hypoxic respiratory failure. He received 80mg IV lasix and 1mg IV morphine. Much more relaxed and less respiratory distress. Continue prn morphine. Plan is to send the patient to [facility] tomorrow and refer to hospice.
[2017-08-26] MEDS: Morphine INJ* 2 MG/ML 1 ML CARPUJECT IV PRN ×2 (02:53→08:46)
[2017-08-26] MEDS: Heparin VIAL(*) 5000 UNITS/ML VIAL (FIVE THOUSAND) SUBCUT SCH (05:51)
[2017-08-26 05:58] LABS: EGFR Non-African American 29.3 (>60)
[2017-08-26 06:13] LABS: INR 1.45 (0.77-1.02)
[2017-08-26 08:00] VITALS: BP 137/36
[2017-08-26] MEDS: Sertraline* 25 MG TAB PO SCH (08:53)
[2017-08-26] MEDS: Memantine TAB* 10 MG PO SCH (08:53)
[2017-08-26] MEDS: Donepezil TAB* 5 MG PO SCH (08:53)
--- NOTE | 2017-08-26 11:13 | DS ---
CC: Dr. Rosenberg * DATE OF ADMISSION: 08/24/2017. DATE OF DISCHARGE: 08/26/2017. PRIMARY CARE PHYSICIAN: Dr. Rosenberg. PRINCIPAL DIAGNOSIS: Acute hypoxic respiratory failure secondary to likely pneumonia and congestive heart failure - diastolic. SECONDARY DIAGNOSES: 1. Advanced dementia. 2. Atrial fibrillation, status post pacemaker placement for tachybrady syndrome. 3. Hypertension. 4. Hyperlipidemia. DISCHARGE MEDICATIONS: 1. Torsemide 10 mg p.o. daily prn pulmonary edema. 2. Tylenol 650 mg p.o. or p.r. q.4 hours prn pain or fever. 3. Morphine concentrate 5 mg p.o. q.2 hours prn pain or air hunger. 4. Ativan 0.5 mg p.o. q.4 hours prn anxiety. HOSPITAL COURSE: Mr. Mo is an 82-year-old male who presented to the emergency room on 08/24/2017 with complaints of fever and shortness of breath. The patient in the emergency room was noted to have a ten pound weight gain from 08/17/2017 to the day of admission. It was not completely clear as to the cause of his shortness of breath; however, there was concern that perhaps he had both decompensated diastolic congestive heart failure as well as possible pneumonia given his fever. The patient was started on Zosyn for treatment of possible aspiration pneumonia as this was felt to be the most likely cause of the pneumonia as well as increasing his Torsemide. The patient received two liters of fluid in the emergency room and despite that and not having received any diuretics, the patient's creatinine went from 1.28 to 1.68 the day after admission. The patient was started on gentle IV fluid hydration after discussion with the patient's . I did explain to her that I was concerned that given his known aortic regurgitation, that may worsen his pulmonary status by giving him the fluids. Ultimately a transthoracic echocardiogram was performed which clearly identified severe aortic regurgitation which was worse than previous. In the afternoon of 08/25/2017, the patient did acutely decompensate requiring 16 liters of oxygen and Morphine to improve his respiratory distress. The patient was diagnosed at that point with acute hypoxic respiratory failure likely secondary to diastolic congestive heart failure and pneumonia. Dr. Ulloa had met with the patient and his earlier on 08/25/2017 and discussed options for his aortic regurgitation and the decision ultimately was made to transfer the patient back to [facility] and refer to hospice. On 08/26/2017, the patient is appearing much more comfortable than the afternoon of 08/25/2017. His breathing is not labored at this point. He has been somewhat drowsy and slightly restless. The patient's would like the patient transferred back to [facility] and be signed on to hospice. The patient will go back to [facility] with Morphine concentrate and Ativan as needed for pain, air hunger, and anxiety. A hospice referral has been made from the hospital for the patient. I have stopped the patient's dementia medications, depression medications, and Coumadin. At this point, the patient is ready to go to [facility] to be signed on to hospice. On the day of discharge, the patient was drowsy, lying in bed, but awakened to voice. He did answer a few simple questions with yes/no answers. The patient' s cardiac exam revealed normal S1 and S2, a regular rate and rhythm with no lower extremity edema. His lungs reveal coarse rhonchi throughout. The abdomen is soft, nontender, nondistended. The patient's condition is currently guarded. He is, however, stable to make the transfer to [facility] today. FOLLOW-UP CONCERNS: The patient is being discharged to [facility] today, 2017. ACTIVITY LEVEL: As tolerated. DIET: Regular as tolerated. CONDITION ON DISCHARGE: Guarded, but stable. Thirty-five minutes were spent discharging this patient. [id number]/[facility] #: [id number] MTDD
== END 2017-08-26 12:12 | DRG 291 ==
LOC: ED 19:48 → MEDTELE 22:23
PROVIDERS: ADMIT Pediatrics; ATTEND Hospitalist
DX: I13.0 Hypertensive heart and chronic kidney disease with heart failure and stage 1 through stage 4 chronic kidney disease, or unspecified chronic kidney disease (principal); J69.0 Pneumonitis due to inhalation of food and vomit; J96.01 Acute respiratory failure with hypoxia; I50.33 Acute on chronic diastolic (congestive) heart failure; T82.09XA Other mechanical complication of heart valve prosthesis, initial encounter; I48.91 Unspecified atrial fibrillation; I07.1 Rheumatic tricuspid insufficiency; I27.20 Pulmonary hypertension, unspecified; F03.90 Unspecified dementia, unspecified severity, without behavioral disturbance, psychotic disturbance, mood disturbance, and anxiety; Z95.0 Presence of cardiac pacemaker; E78.5 Hyperlipidemia, unspecified; Z91.013 Allergy to seafood; Z95.2 Presence of prosthetic heart valve; Z66 Do not resuscitate; Z72.89 Other problems related to lifestyle; N18.3 Chronic kidney disease, stage 3 (moderate); Z88.0 Allergy status to penicillin; Y71.2 Prosthetic and other implants, materials and accessory cardiovascular devices associated with adverse incidents; Y92.9 Unspecified place or not applicable; F32.9 Major depressive disorder, single episode, unspecified; I35.1 Nonrheumatic aortic (valve) insufficiency
CPT/HCPCS: 36415; 71045; 80048; 80053; 80162; 81003; 83605; 83880; 84145; 84484; 85025; 85610; 85730; 87040; 87502; 93005; 93306; 99284; A9270-GY; J1644; J1885; J1940; J2270; J2543; J3370